=== PATIENT | female | born 1950 | race Caucasian/White ===

== ENCOUNTER 2018-09-08 11:28 | Outpatient (CLI) | payer MEDICARE, OTHER, SELFPAY ==
--- NOTE | 2018-09-08 13:11 | DI.MAMMO_ITS ---
SYMPTOMS/DIAGNOSIS: SCREENING, Z12.31 MAMMOGRAMS: Mammograms were interpreted according to the usual protocol including computer analysis with CAD system, tomosynthesis and C view imaging. Comparison is with the prior examinations. No masses or microcalcifications are seen. There is nothing to suggest malignancy. IMPRESSION: Negative mammogram. Routine screening is recommended. Category 1 , breast density B. MQSA ASSESSMENT OF FINDINGS: Negative. Category 1. Patient will receive a letter notifying them of these results. BI-RADS category B. There are scattered areas of fibroglandular density.
== END 2018-09-08 11:48 ==
PROVIDERS: PCP Emergency Medicine; Visit Provider Nurse Practitioner Family
DX: Z12.31 Encounter for screening mammogram for malignant neoplasm of breast (principal)
CPT/HCPCS: 77063; 77067

== ENCOUNTER 2018-10-27 01:08 | Outpatient (CLI) | payer MEDICARE, OTHER, SELFPAY ==
--- NOTE | 2018-10-27 13:46 | DI.CT_ITS ---
SYMPTOMS/DIAGNOSIS: CHRONIC SINUSITIS, J32.[address]: The noncontrast enhanced examination was carried out according to the usual protocol and reveals a region of increased density involving the floor of the left maxillary antrum. This region is centered around a partially calcified cystic area adjacent to the roots of a molar tooth in the left maxilla. The possibility of a partially calcified odontogenic cyst or conceivably calcification in the veras of a periapical abscess is raised. The paranasal sinuses are otherwise unremarkable. The nasal cavity is normal. SUMMARY: Abnormality in the left maxillary antrum is demonstrated and appears to be associated with the roots of a left maxillary molar tooth. The findings could represent calcification in the wall of a chronic periapical abscess or other dental pathology. Further assessment with a dental referral is suggested where a pantograph examination could be obtained for further review. There is no other evidence of a sinus abnormality in this patient.
== END 2018-10-27 01:28 ==
PROVIDERS: PCP Emergency Medicine; Visit Provider Emergency Medicine
DX: J32.0 Chronic maxillary sinusitis; K04.8 Radicular cyst
CPT/HCPCS: 70486

== ENCOUNTER 2019-10-14 01:39 | Outpatient (CLI) | payer MEDICARE, OTHER, SELFPAY ==
--- NOTE | 2019-10-14 15:04 | DI.MAMMO_ITS ---
EXAM: MG MAMMO SCREENING CLINICAL HISTORY: screening TECHNIQUE: Mammograms were interpreted according to the usual protocol including computer analysis w [email or web address] CAD system, tomosynthesis and C-view imaging. COMPARISON: [id number] FINDINGS: The breasts are composed of heterogeneously dense tissue, breast density category C. There are no dumont spicious masses or suspicious microcalcifications. There has been no significant change when compared with prior images. IMPRESSION: Category 1, negative mammogram. Yearly screening mammography is recommended. BI-RADS Cat 1 - Negative Breast Density - Category C - Heterogeneously dense
== END 2019-10-14 01:59 ==
PROVIDERS: PCP Emergency Medicine; Visit Provider Nurse Practitioner Family
DX: Z12.31 Encounter for screening mammogram for malignant neoplasm of breast (principal)
CPT/HCPCS: 77063; 77067

== ENCOUNTER 2019-12-07 07:12 | Outpatient (CLI) | payer MEDICARE, OTHER, SELFPAY ==
[2019-12-07 07:46] LABS: Abs Immature Grans 0.02 k/cumm (0.0-0.09); Absolute Basophil Count 0.03 k/cumm (0.0-0.2); Absolute Eosinophil Count 0.11 k/cumm (0.0-0.7); Absolute Lymphocyte Count 1.49 k/cumm (1.2-3.4); Absolute Monocyte Count 0.79 k/cumm (0.11-0.7); Absolute Neutrophil Count 5.55 k/cumm (1.2-6.7); Basophils % 0.4; Eosinophils % 1.4; HCT 38.7 % (36.0-46.0); HGB 12.9 g/dL (12.0-15.5); Immature Grans % 0.3 %; Lymphocytes % 18.6; Mean Corp. HGB Concentration 33.3 g/dL (32.0-36.0); Mean Corpuscular Hemoglobin 32.1 pg (27.0-33.0); Mean Corpuscular Volume 96.3 fL (80-95); Mean Platelet Volume 9.2 fL (8.0-11.0); Monocytes % 9.9; Neutrophils % 69.4; Platelet Count 313 x1000/uL (130-400); RBC 4.02 m/cumm (4.00-5.20); RBC Distribution Width 12.4 % (11.7-14.6); White Blood Cell Count 7.99 k/cumm (4.4-10.8)
[2019-12-07 08:20] LABS: C-Reactive Protein 2.55 mg/dL (0.0-0.3)
[2019-12-07 08:32] LABS: Calculated LDL 145 mg/dL (<100); Cholesterol 231 mg/dL (<200); HDL Cholesterol 60 mg/dL (40-60); Triglyceride 133 mg/dL (<150)
== END 2019-12-07 07:32 ==
PROVIDERS: PCP Emergency Medicine; Visit Provider Emergency Medicine
DX: E78.5 Hyperlipidemia, unspecified (principal); R06.09 Other forms of dyspnea; R06.02 Shortness of breath
CPT/HCPCS: 36415; 80061; 85025; 86140

== ENCOUNTER 2019-12-13 00:49 | Outpatient (CLI) | payer MEDICARE, OTHER, SELFPAY ==
--- NOTE | 2019-12-13 10:44 | DI.NM_ITS ---
APPROVED REPORT Exam: Exercise Treadmill Patient Location: Out-Patient Room/Bed: Stress Nurse: Laurita Lozada RN BMI: 24.12 Baseline Rhythm: Sinus Rhythm Indications: Dyspnea on exertion. Medical History Medical History: Hyperlipidemia Cardiac Medications: Rosuvastatin/ Crestor Allergies: No known drug allergies Cardiac Risk Factors: FHX of CAD, Hyperlipidemia Pretest Chest Pain Characteristics: Dyspnea Exercise History: Physically active Lung Sounds: Clear to auscultation Heart Sounds: Regular Stress Test Details Test: Exercise stress testing was performed using a Bill protocol. Nuclear Acquisition: Rest Tc-99m/Stress Tc-99m 1 day Rest Isotope: Tc-99m Sestamibi. Dose: 11.0 Date: 12/13/2019 Injection Time: 1130 Stress Isotope: Tc-99m Sestamibi. Dose: 33.0 Date: 12/13/2019 Injection Time: 1305 HR Resting HR Supine: 56 bpm Max Heart Rate (APMHR): 151 bpm Resting HR Standin bpm Target HR (85% APMHR): 128 bpm Max HR Achieved: 133 bpm % of APMHR: 88 Recovery HR: 71 bpm HR response to stress: Normal HR response to stress BP Resting BP Supine: 142/80 mmHg Resting BP Standin/80 mmHg Max BP: 162/60 mmHg Recovery BP: 140/70 mmHg BP response to stress: Normal blood pressure response to stress. ECG Resting ECG: Sinus Rhythm Ectopy: PVCs Stress ECG: Sinus Tachycardia ST Change: No significant ST segment changes Arrhythmia: None Recovery ECG: Sinus Rhythm Recovery ST Change: No significant ST segment changes Recovery Arrhythmia: None Clinical Reason for Termination: Fatigue, Dyspnea Stress Symptoms: General Fatigue Exercise duration: 9 min00 sec Highest Stage Reached: Stage 3: 3.4 mph at 14% grade. Exercise capacity: 10.16 METs Functional Capacity: Above average capacity Scale: Active Stress ECG Conclusion 1. Patient exercised for 9 minutes (10 METS). Exercise was stopped due to fatigue. 2. Patient demonstrated good exercise tolerance with a rate-pressure product of 21,000. 3. Patient no symptoms digestive of ischemia. 4. There is no evidence of ischemia on the ECG portion of this exam. Protocol Used: Bill Protocol Stress Test Summary STAGE Time (mins) Speed (mph) Grade (%) HR BP SYMPTOMS METS Supine 56 142/80 Standing 66 138/80 1 3 1.7 10 106 140/72 4.6 2 6 2.5 12 120 144/80 7 3 9 3.4 14 132 164/80 10.2 1 min recovery 114 162/60 3 min recovery 77 142/80 6 min recovery 71 140/70 MPI Conclusion Ejection fraction was 60%. There were no wall motion abnormalities. There is perfusion mismatch at the base which likely represents artifact. There was no evidence of significant ischemia on the imaging portion of this exam. This represents a normal SPECT stress test. Radiologist Interpretation Radiologist Interpretation by: Regis Gaxiola MD Interpretation Date/Time: 12/13/2019 15:42:54
--- NOTE | 2019-12-13 11:09 | DI.RAD_ITS ---
EXAM: XR CHEST 2V PA LATERAL CLINICAL HISTORY: MONTERO, R06.09. TECHNIQUE: 2D digital imaging was performed. COMPARISON: No exams were available for comparison FINDINGS: LUNGS: Clear. No pleural abnormality seen. HEART: Normal. MEDIASTINUM: Normal. OTHER FINDINGS:Normal. BONE:Normal. IMPRESSION: No acute pulmonary findings.
== END 2019-12-13 01:09 ==
PROVIDERS: PCP Emergency Medicine; Visit Provider Family Medicine
DX: R06.09 Other forms of dyspnea (principal); E78.5 Hyperlipidemia, unspecified; Z82.49 Family history of ischemic heart disease and other diseases of the circulatory system
CPT/HCPCS: 78452; 93016; 93018; 71046; 93017

== ENCOUNTER 2020-03-02 00:25 | Outpatient (CLI) | payer MEDICARE, OTHER, SELFPAY ==
[2020-03-02 14:04] LABS: Abs Immature Grans 0.02 k/cumm (0.0-0.09); Absolute Basophil Count 0.04 k/cumm (0.0-0.2); Absolute Eosinophil Count 0.25 k/cumm (0.0-0.7); Absolute Monocyte Count 0.79 k/cumm (0.11-0.7); Absolute Neutrophil Count 5.93 k/cumm (1.2-6.7); Basophils % 0.4; Eosinophils % 2.7; HGB 13.2 g/dL (12.0-15.5); Immature Grans % 0.2 %; Mean Corp. HGB Concentration 33.8 g/dL (32.0-36.0); Mean Corpuscular Volume 94.7 fL (80-95); Mean Platelet Volume 9.6 fL (8.0-11.0); Monocytes % 8.7; Platelet Count 306 x1000/uL (130-400); RBC 4.12 m/cumm (4.00-5.20); RBC Distribution Width 12.5 % (11.7-14.6); White Blood Cell Count 9.13 k/cumm (4.4-10.8)
[2020-03-02] MEDS: Normal Saline - Diluent 50 ML VIAL IV (14:25)
[2020-03-02] MEDS: Omnipaque 350 MG/ML 100 ML BTL IJ (14:26)
[2020-03-02 14:30] LABS: C-Reactive Protein 0.19 mg/dL (0.0-0.3)
--- NOTE | 2020-03-02 14:30 | DI.CT_ITS ---
EXAM: CT CHEST W CLINICAL HISTORY: dyspnea on exertion, r06.00 TECHNIQUE: Imaging Protocol: Axial computed tomography images with coronal and sagittal reformatted images were created and reviewed CONTRAST MATERIAL: Intravenous: Omnipaque 350 Contrast volume:structured data in ml. COMPARISON: XR CHEST 2V PA LATERAL from 12/13/2019 FINDINGS: Tracheobronchial tree: Normal. Mediastinum and Evita: No dominant adenopathy or fluid collection. Pulmonary parenchyma: No consolidation or dominant measurable mass. There are no visible emphysematou s or fibrotic changes. Pleura: No effusion or pneumothorax. Heart: The heart is not dilated. Mild coronary artery calcifications are seen. Aorta: Thoracic aorta non-dilated. Minimal calcifications. Upper abdomen: Unremarkable. Lymph nodes: Within normal limits. Bones: Degenerative disc changes seen in the thoracic spine. Scoliosis is present at the thoracolumb ar junction. IMPRESSION: Unremarkable CT of the chest.. DATA REPOSITORY: All CT scans at this facility are submitted to the National Radiology Data Registry (NRDR) Dose Index Registry (DIR) with the [employer] (ACR). RADIATION OPTIMIZATION: All CT scans at this facility use at least one of these dose optimization te chniques: automated exposure control; mA and/or kV adjustment per patient size (includes targeted exa ms where dose is matched to clinical indication); or iterative reconstruction.
[2020-03-02 14:56] LABS: D-Dimer 474 ng/mlFEU (<500)
[2020-03-02 15:21] LABS: ESR 29 mm/hr (0-30)
== END 2020-03-02 00:45 ==
PROVIDERS: PCP Emergency Medicine; Visit Provider Emergency Medicine
DX: R06.09 Other forms of dyspnea (principal); F32.9 Major depressive disorder, single episode, unspecified
CPT/HCPCS: 85652; 71260; 82565; 85025; 85379; 86140; J3490

== ENCOUNTER 2020-10-17 01:00 | Outpatient (CLI) | payer MEDICARE, SELFPAY ==
--- NOTE | 2020-10-17 15:10 | DI.MAMMO_ITS ---
EXAM: MG MAMMO SCREENING CLINICAL HISTORY: screening TECHNIQUE: Mammograms were interpreted according to the usual protocol including computer analysis w [employer] CAD system, tomosynthesis and C-view imaging. COMPARISON: FINDINGS: The breasts are heterogeneously dense. No dominant mass or clumped microcalcification is identified in either breast. The current examination is compared with previous examinations including October 2019 and there has been no gross interval change in appearance in comparison with the prior studies. IMPRESSION: No specific evidence of malignancy at this time. Routine screening examinations are suggested at yea rly intervals in this age group due to the family history of breast carcinoma. BI-RADS Category 1 - Negative Breast Density - Category C - Heterogeneously dense
== END 2020-10-17 01:20 ==
PROVIDERS: PCP Emergency Medicine; Visit Provider Nurse Practitioner Family
DX: Z12.31 Encounter for screening mammogram for malignant neoplasm of breast (principal); Z80.3 Family history of malignant neoplasm of breast
CPT/HCPCS: 77063; 77067

== ENCOUNTER 2021-03-14 10:33 | Outpatient (CLI) | payer MEDICARE, OTHER, SELFPAY ==
[2021-03-14 12:41] LABS: HCT 39.6 % (36.0-46.0); HGB 13.3 g/dL (11.2-15.7); MCH 32.3 pg (27.0-33.0); MCHC 33.6 % (32.0-36.0); MCV 96.1 fL (80-95); MPV 9.5 fL (8.0-11.0); Platelet Count 334 10^3/uL (130-400); RBC 4.12 10^6/uL (3.93-5.22); RDW 12.4 % (11.7-14.6); WBC 7.09 10^3/uL (4.4-10.8)
[2021-03-14 12:51] LABS: C-Reactive Protein 0.43 mg/dL (0.0-0.3)
[2021-03-19 13:55] LABS: IgA 272 mg/dL (85-499); Interpretation (See Note); Tissue Transglutaminase IgA <1.2 U/mL (<4.0)
== END 2021-03-14 10:34 | disposition home or self-care (01) ==
LOC: LOS 10:34
PROVIDERS: PCP Emergency Medicine; Visit Provider Emergency Medicine
DX: R19.7 Diarrhea, unspecified (principal)
CPT/HCPCS: 36415; 82784; 83516; 85027; 86140

== ENCOUNTER 2021-03-15 16:27 | Outpatient (REF) | payer MEDICARE, OTHER, SELFPAY ==
[2021-03-15 14:37] LABS: C Diff PCR Negative (Negative)
[2021-03-16 10:48] LABS: Campylobacter PCR Negative (Negative); Salmonella PCR Negative (Negative); Shiga Toxin PCR Negative (Negative); Shigella/Enteroinvasive Ecoli Negative (Negative)
== END 2021-03-15 16:28 | disposition home or self-care (01) ==
LOC: LBN 16:27
PROVIDERS: PCP Emergency Medicine; Visit Provider Emergency Medicine
DX: R19.7 Diarrhea, unspecified (principal)
CPT/HCPCS: 87329; 87493; 87505

== ENCOUNTER 2021-11-12 00:54 | Outpatient (CLI) | payer MEDICARE, OTHER, SELFPAY ==
--- NOTE | 2021-11-12 12:00 | DI.MAMMO_ITS ---
Exam(s) MAMMO SCREENING EXAM: MAMMO SCREENING CLINICAL HISTORY: screening TECHNIQUE: Mammograms were interpreted according to the usual protocol including computer analysis w [employer] CAD system, tomosynthesis and C-view imaging. COMPARISON: 2011 through 2019 FINDINGS: The breasts are composed of heterogeneously dense fibroglandular densities, Breast Density category C . No suspicious masses or suspicious microcalcifications are seen. No skin thickening or abnormal axillary lymph nodes are seen. There has been no significant change from prior exams. IMPRESSION: BI-RADS Category 1, Negative mammogram. Yearly screening mammography is recommended. Breast Density Category C, heterogeneously Dense. The mammogram demonstrates the patient's breast tissue is dense. Dense breast tissue is very common a nd is not abnormal but dense breast tissue can make it harder to find cancer on a mammogram. Also, de nse breast tissue may increase breast cancer risk. This information about the result of the mammogram report was provided to the patient to raise their awareness. Use this report when you speak with the patient about their risks for breast cancer, which includes their family history. At that time, you may recommend additional screening tests (Ultrasound or MRI) as they might be useful based on their r isk. A negative radiographic report should not delay biopsy if a dominant or clinically suspicious mass is present. Up to ten percent of cancers are not identified on mammography. A negative report may reinforce clinical impression. Adenosis and dense breasts may obscure an underlying neoplasm. False positive reports average 6 to 10%.
== END 2021-11-12 01:14 ==
PROVIDERS: PCP Emergency Medicine; Visit Provider Nurse Practitioner Family
DX: Z12.31 Encounter for screening mammogram for malignant neoplasm of breast (principal)
CPT/HCPCS: 77063; 77067

== ENCOUNTER 2021-12-14 00:27 | Outpatient (CLI) | payer MEDICARE, OTHER, SELFPAY ==
--- NOTE | 2021-12-14 07:15 | DI.US_ITS ---
Exam(s) US ABDOMEN EXAM: US ABDOMEN CLINICAL HISTORY: Abnormal mass with exam of Vale Sign,r19.00 TECHNIQUE: Ultrasound abdomen performed using standard protocol. COMPARISON: CT CT CHEST W from 03/02/2020 FINDINGS: ABDOMINAL AORTA AND IVC: Visualized portions normal caliber. PANCREAS: Normal where visualized. LIVER: Normal. Hepatopedal flow in the Portal Vein. The liver measures 15.3 cm long. GALLBLADDER:No evidence of cholelithiasis. No evidence of wall thickening. No pericholecystic fluid i dentified. There may be a small amount of sludge in the gallbladder. BILIARY SYSTEM: Common bile duct measures < 7 mm. No intrahepatic biliary ductal dilation. VALE'S SIGN: Negative. KIDNEYS: Kidneys are symmetric in size. No evidence of renal calculi. No evidence of hydronephrosis. No renal mass or cyst identified. SPLEEN: Not enlarged. ASCITES: None seen. There is a shadowing structure seen medial to the right kidney. Review of the CT scan of the chest 2019 shows the patient has a right convex scoliosis likely accounting for the shadowing structure . No definite mass is seen medial to the kidney. A CT scan of the abdomen and pelvis should be cons idered however for further evaluation. IMPRESSION: 1. No definite evidence of a renal or hepatic mass. 2. CT scan of the abdomen and pelvis may be considered for further evaluation. DATA REPOSITORY:
== END 2021-12-14 00:47 ==
PROVIDERS: PCP Family Medicine; Visit Provider Nurse Practitioner Family
DX: R19.09 Other intra-abdominal and pelvic swelling, mass and lump (principal)
CPT/HCPCS: 76700